=== PATIENT | female | born 1970 | race Caucasian/White ===

== ENCOUNTER 2022-08-14 08:54 | Emergency (ER) | payer SELFPAY ==
[2022-08-14] MEDS ORDERED: Sodium Chloride 0.9% 1000 ML 1,000 ML IV STA (09:08)
[2022-08-14] MEDS ORDERED: Zofran 4 MG/2 ML VIAL IV ONE (09:13)
[2022-08-14] MEDS ORDERED: Zofran 4 MG/2 ML VIAL ONE (09:22)
[2022-08-14] MEDS ORDERED: Sodium Chloride 0.9% 1000 ML 1,000 ML ONE (09:22)
--- NOTE | 2022-08-14 09:27 | ERPHSYRPT ---
- History of Present Illness Time Seen by Provider: 08/14/22 09:00 Source: patient Patient Subjective Stated Complaint: PT HERE FOR CHEST PAIN TO CENTER OF CHEST THAT GOES TO BACK, ALSO CO NAUSEA AND SOB, TOOK 3 NITRO WITH SOME RELIEF. Triage Nursing Assessment: PT ALERT, ANXIOUS AT TIMES, RESP EASY, SKIN W/D/P, NO COUGH. NO EDEMA NOTED Physician History: Patient is here with chest pain. Started last night. Intermittent bee sting. No other falls or trauma. History of an SC. Had cath, stents placed more than half ago with her machine stacker, Dr. Silva. Patient states she has taken several doses of baby aspirin. She has taken nitro at home. She only feels somewhat improved. Allergies/Adverse Reactions: No Known Drug Allergies Allergy (Unverified 08/14/22 09:02) Home Medications: Clopidogrel Bisulfate [PLAVIX Tablet] 75 mg PO DAILY 08/14/22 [History] Nitroglycerin 0.4 mg Tablet [Nitrostat 0.4 MG Tablet] 0.4 mg SL DAILY PRN PRN 08/14/22 [History] Hx Tetanus, Diphtheria Vaccination/Date Given: No Hx Influenza Vaccination/Date Given: Yes Hx Pneumococcal Vaccination/Date Given: Yes Immunizations Up to Date: Yes Travel Risk - International Travel Have you traveled outside of the country in past 3 weeks: No - Coronavirus Screening Are you exhibiting any of the following symptoms?: No Close contact with a COVID-19 positive Pt in past 14-21 Days: No - Vaccine Status Have you recieved a Covid-19 vaccination: Yes [employer]: [email or web address] - Vaccination Dates Date of 2cond Vaccination (if applicable): 2020 - Review of Systems Constitutional: No Fever, No Chills Eyes: No Symptoms Ears, Nose, & Throat: No Symptoms Respiratory: No Cough, No Dyspnea Cardiac: Chest Pain, No Edema, No Syncope Abdominal/Gastrointestinal: No Abdominal Pain, No Nausea, No Vomiting, No Diarr hea Genitourinary Symptoms: No Dysuria Musculoskeletal: No Back Pain, No Neck Pain Skin: No Rash Neurological: No Dizziness, No Focal Weakness, No Sensory Changes Psychological: No Symptoms Endocrine: No Symptoms All Other Systems: Reviewed and Negative - Past Medical History Pertinent Past Medical History: Yes Cardiac History: Coronary Artery Disease, High Cholesterol, Myocardial Infarction (SC) Respiratory History: COPD Endocrine Medical History: Diabetes Type II - Past Surgical History Past Surgical History: Yes Cardiac: Cardiac Catheterization, Cardiac Stent Female Surgical History: Hysterectomy - Social History Smoking Status: Current every day smoker Exposure to second hand smoke: Yes Drug Use: none Patient Lives Alone: Yes - Nursing Vital Signs Nursing Vital Signs: Initial Vital Signs Pulse Rate 74 08/14/22 09:09 Respiratory Rate 17 08/14/22 09:09 Blood Pressure 121/75 08/14/22 09:09 O2 Sat by Pulse Oximetry 96 08/14/22 09:09 Pain Scale Pain Intensity 2 - Physical Exam General Appearance: no apparent distress, alert Eye Exam: PERRL/EOMI, eyes nml inspection Ears, Nose, Throat Exam: normal ENT inspection, pharynx normal, moist mucous membranes Neck Exam: normal inspection, non-tender, supple, full range of motion Respiratory Exam: normal breath sounds, lungs clear, No respiratory distress Cardiovascular Exam: regular rate/rhythm, normal heart sounds, normal peripheral pulses Gastrointestinal/Abdomen Exam: soft, normal bowel sounds, No tenderness, No mass Back Exam: normal inspection, normal range of motion, No CVA tenderness, No vertebral tenderness Extremity Exam: normal inspection, normal range of motion, pelvis stable Neurologic Exam: alert, oriented x 3, cooperative, normal mood/affect, sensation nml, No motor deficits Skin Exam: normal color, warm, dry, No rash Lymphatic Exam: No adenopathy SpO2: 96 - Course Nursing assessment & vital signs reviewed: Yes EKG Interpreted by Me: Sinus Rhythm Ordered Tests: Active Orders 24 hr Category Date Time Status Clean Catch Urine Specimen STAT Care 08/14/22 09:08 Active CHEST 1 VIEW (PORTABLE) Stat Exams 08/14/22 09:13 Completed CBC W DIFF Stat Lab 08/14/22 09:25 Completed CK-Creatinine Phosphokinase Stat Lab 08/14/22 09:25 Received D-DIMER QUANTITATIVE Stat Lab 08/14/22 09:25 Completed LIPASE Stat Lab 08/14/22 09:25 Received NT PRO BNPII Stat Lab 08/14/22 09:25 Received PROTIME WITH INR Stat Lab 08/14/22 09:25 Completed TROPONIN Q4H Lab 08/14/22 17:15 Ordered Urine Triage Profile Stat Lab 08/14/22 11:29 Ordered Medication Summary Discontinued Medications Generic Name Dose Route Start Last Admin Trade Name Freq PRN Reason Stop Dose Admin Sodium Chloride 1,000 mls @ 999 mls/hr 08/14/22 09:08 08/14/22 10:49 Sodium Chloride 0.9% 1000 Ml IV 08/14/22 10:08 Infused .Q1H1M STA Infusion Sodium Chloride Confirm 08/14/22 09:22 Sodium Chloride 0.9% 1000 Ml Administered 08/14/22 09:23 Dose 1,000 mls @ ud .ROUTE .STK-MED ONE Ondansetron HCl 4 mg 08/14/22 09:13 08/14/22 09:23 Ondansetron Hcl 4 Mg/2 Ml Vial IV 08/14/22 09:14 4 mg STAT ONE Administration Ondansetron HCl Confirm 08/14/22 09:22 Ondansetron Hcl 4 Mg/2 Ml Vial Administered 08/14/22 09:23 Dose 4 mg .ROUTE .STK-MED ONE Lab/Rad Data: Laboratory Result Diagrams 08/14/22 09:25 08/14/22 09:25 Laboratory Results 08/14/22 08/14/22 08/14/22 Range/Units 13:03 09:25 09:25 WBC (4.0-10.5) x10^3/uL RBC (4.1-5.4) x10^6/uL Hgb (12.0-16.0) g/dL Hct (35-47) % MCV (78-100) fL MCH (26-32) pg MCHC (32-36) g/dL RDW (11.5-14.0) % Plt Count (150-450) x10^3/uL MPV (7.5-11.0) fL Gran % (36.0-66.0) % Immature Gran % (Auto) (0.00-0.4) % Nucleat RBC Rel Count (0.00-0.1) % Eos # (Auto) (0-0.5) x10^3/uL Immature Gran # (Auto) (0.00-0.03) x10^3u/L Absolute Lymphs (auto) (1.0-4.6) x10^3/uL Absolute Monos (auto) (0.0-1.3) x10^3/uL Absolute Nucleated RBC (0.00-0.01) x10^3u/L Lymphocytes % (24.0-44.0) % Monocytes % (0.0-12.0) % Eosinophils % (0.00-5.0) % Basophils % (0.0-0.4) % Absolute Granulocytes (1.4-6.9) x10^3/uL Basophils # (0-0.4) x10^3/uL PT 11.1 (9.4-12.5) SECONDS INR 1.02 (0.8-3.0) D-Dimer 0.50 (0.0-0.50) mg/L Sodium Direct 139 (138-146) mmol/L Potassium 3.9 (3.5-4.9) mmol/L Chloride 103 (98-109) mmol/L Carbon Dioxide 25 (24-29) mmol/L Venous BUN 10 (8-26) mg/dL Creatinine 0.7 (0.6-1.3) mg/dL Glucose 193 H (70-105) mg/dL Ionized Calcium 1.18 (1.12-1.32) mmol/L Troponin 0.00 0.00 (0.00-0.03) ng/mL 08/14/22 Range/Units 09:25 WBC 7.4 (4.0-10.5) x10^3/uL RBC 4.22 (4.1-5.4) x10^6/uL Hgb 13.6 (12.0-16.0) g/dL Hct 38.6 (35-47) % MCV 91.5 (78-100) fL MCH 32.2 H (26-32) pg MCHC 35.2 (32-36) g/dL RDW 11.8 (11.5-14.0) % Plt Count 188 (150-450) x10^3/uL MPV 11.0 (7.5-11.0) fL Gran % 61.6 (36.0-66.0) % Immature Gran % (Auto) 0.3 (0.00-0.4) % Nucleat RBC Rel Count 0.0 (0.00-0.1) % Eos # (Auto) 0.34 (0-0.5) x10^3/uL Immature Gran # (Auto) 0.02 (0.00-0.03) x10^3u/L Absolute Lymphs (auto) 2.04 (1.0-4.6) x10^3/uL Absolute Monos (auto) 0.41 (0.0-1.3) x10^3/uL Absolute Nucleated RBC 0.00 (0.00-0.01) x10^3u/L Lymphocytes % 27.6 (24.0-44.0) % Monocytes % 5.5 (0.0-12.0) % Eosinophils % 4.6 (0.00-5.0) % Basophils % 0.4 (0.0-0.4) % Absolute Granulocytes 4.56 (1.4-6.9) x10^3/uL Basophils # 0.03 (0-0.4) x10^3/uL PT (9.4-12.5) SECONDS INR (0.8-3.0) D-Dimer (0.0-0.50) mg/L Sodium Direct (138-146) mmol/L Potassium (3.5-4.9) mmol/L Chloride (98-109) mmol/L Carbon Dioxide (24-29) mmol/L Venous BUN (8-26) mg/dL Creatinine (0.6-1.3) mg/dL Glucose (70-105) mg/dL Ionized Calcium (1.12-1.32) mmol/L Troponin (0.00-0.03) ng/mL - Progress Progress: improved Progress Note: 08/14/22 09:26 differential diagnosis includes: PNA, STEMI, NSTEMI, other infection, musculoskeletal pain, pneumothorax - We'll obtain basic labs, fluids, EKG, troponin, chest x-ray - first troponin negative. - EKG shows no ST changes - my read. See full read below. - O2 saturations consistently greater than 95%. - CXR shows no pneumonia, pneumothorax - my read 08/14/22 10:16 First troponin negative. EKG shows no ST changes. My read. I did discuss over the phone with her machine stacker, Dr. Silva. He recommend transferred to [facility] given patient's significant past medical history including cardiac arrest, PCI, stent placement. Patient has missed her last 2 follow-up appointments. Therefore no up-to-date information on the patient. Last office visit was February 2022. Given all of this, he did recommend patient transfer. Patient is now a 0 out of 10 pain. She did agree to transfer. I spoke with Dr. Mccoy over the phone he did accept patient for transfer. Counseled pt/family regarding: lab results, diagnosis, need for follow-up, rad results Medical Desision Making - Discussion of managment Care discussed with:: specialist Reviewed:: Test results, Need for additional workup Agreed on:: decision to admit - Diagnostic Testing Diagnostic test were ordered, analyzed, and reviewed by me: Yes Radiological Interpretation: Interpreted by me - Departure Departure Disposition: Transfer Clinical Impression: Chest pain at rest Condition: Stable Critical Care Time: No Referrals: DOCTOR,NO FAMILY [Primary Care Provider] - Follow up/PCP as directed Instructions: Chest Pain (DC)
[2022-08-14 09:30] LABS: Absolute Neutrophil Ct (ANC) 4.56 x10^3/uL (1.4-6.9); BASOPHIL % 0.4 % (0.0-0.4); Basophil (Absolute #) 0.03 x10^3/uL (0-0.4); Eosinophil % 4.6 % (0.00-5.0); Eosinophil (Absolute #) 0.34 x10^3/uL (0-0.5); Hematocrit 38.6 % (35-47); Hemoglobin 13.6 g/dL (12.0-16.0); IMMATURE GRAN # 0.02 x10^3u/L (0.00-0.03); IMMATURE GRAN % 0.3 % (0.00-0.4); Lymphocyte (Absolute #) 2.04 x10^3/uL (1.0-4.6); Lymphocytes % 27.6 % (24.0-44.0); Mean Cell Volume 91.5 fL (78-100); Mean Corpuscular Hemoglobin 32.2 pg (26-32); Mean Corpuscular Hgb Concent. 35.2 g/dL (32-36); Monocyte (Absolute #) 0.41 x10^3/uL (0.0-1.3); Monocytes % 5.5 % (0.0-12.0); Neutrophil % 61.6 % (36.0-66.0); Platelet Count 188 x10^3/uL (150-450); Red Blood Count 4.22 x10^6/uL (4.1-5.4); Red Cell Distribution Width 11.8 % (11.5-14.0); White Blood Count 7.4 x10^3/uL (4.0-10.5)
[2022-08-14 09:47] LABS: D-DIMER QUANTITATIVE 0.5 mg/L (0.0-0.50); INR 1.02 (0.8-3.0); PROTIME 11.1 SECONDS (9.4-12.5)
[2022-08-14 09:53] LABS: ISTAT CREA 0.7 mg/dL (0.6-1.3); ISTAT K 3.9 mmol/L (3.5-4.9); ISTAT iCA 1.18 mmol/L (1.12-1.32)
--- NOTE | 2022-08-14 10:57 | XRAY ---
CLINICAL HISTORY:chest pain COMPARISON:None. TECHNIQUES:X-ray of the chest showing 1 view: AP view. FINDINGS: Subtle airspace shadowing is noted in the right lower zone. Left lung is clear. Normal configuration of the mediastinum. Coronary stents are seen. The emily are normal in size and position. The cardiac size is normal. The bony thorax is unremarkable. The costophrenic and cardiophrenic angles are clear. IMPRESSION: Subtle airspace shadowing is noted in the right lower zone, possible infective changes, suggested clinical correlation. Electronically Signed by: Zaki Diallo MD. (08/14/2022 09:52:51 [employer] IN[employer]IGATOR)
[2022-08-14 13:17] VITALS: PULSE 72
[2022-08-14 14:32] VITALS: BP 158/96
[2022-08-14 14:39] VITALS: O2SAT 96
[2022-08-14 16:02] LABS: Amphetamine,Urine NEGATIVE (NEGATIVE); Barbiturate,Urine NEGATIVE (NEGATIVE); Benzodiazepine,Urine NEGATIVE (NEGATIVE); Cocaine,Urine NEGATIVE (NEGATIVE); Methadone,Urine NEGATIVE (NEGATIVE); Opiate,Urine NEGATIVE (NEGATIVE); PCP,Urine NEGATIVE (NEGATIVE); THC,Urine NEGATIVE (NEGATIVE)
== END 2022-08-14 14:38 | disposition short-term general hospital (02) ==
LOC: ED 08:54
DX: R07.9 Chest pain, unspecified (principal); E78.5 Hyperlipidemia, unspecified; E11.9 Type 2 diabetes mellitus without complications; I25.2 Old myocardial infarction; Z79.02 Long term (current) use of antithrombotics/antiplatelets; Z79.899 Other long term (current) drug therapy; Z72.0 Tobacco use
CPT/HCPCS: 36000; 36415; 71045; 80047; 80307; 82550; 83690; 83880; 84484; 85025; 85379; 85610; 96360; 96374; 99285; J2405